=== PATIENT | female | born 1985 | race Two or more races ===

== ENCOUNTER 2024-10-20 07:05 | Emergency (ER) | payer MEDICAID, OTHER ==
[~2024-10-20] VITALS: Ht 157.5 cm; Wt 103.0 kg
--- NOTE | 2024-10-20 07:21 | ECG ---
[facility] Test Date: 2024-10-20 Test Time: 07:10:59 Pat Name: JOSIE DURHAM Department: ER Room: Gender: F Asbestos Hazard Abatement Worker: GEOFF : 1985 Requested By: JOHANN YEH Order Number: [id number] Reading MD: Alton Cobian Measurements Intervals [place] Rate: 79 P: 48 [place]: 153 QRS: -16 QRSD: 99 T: 39 QT: 395 QTc: 453 Interpretive Statements Sinus rhythm Probable left atrial enlargement Left ventricular hypertrophy Nonspecific T abnormalities, anterior leads Baseline wander in lead(s) V4 Electronically Signed On 10-23-2024 21:56:12 PST by Alton Cobian Please click the below link to view image of tracing.
[2024-10-20 08:02] LABS: Basophils # (auto) 0.1 10 ^3/uL (0-0.2); Basophils % (auto) 0.4 % (0.0-2.0); Eosinophils # (auto) 0.2 10 ^3/uL (0-0.8); Monocytes # (auto) 0.6 10 ^3/uL (0-1.3); Red Cell Distribution Width 15.5 % (11.8-14.3)
[2024-10-20 08:04] LABS: Eosinophils % (auto) 1.4 % (0.0-7.0); Hematocrit 43.4 % (36.0-46.0); Lymphocytes # (auto) 2.7 10 ^3/uL (0.4-5.4); Mean Corpuscular Hemoglobin 24.6 pg (28.0-32.0); Mean Corpuscular Hgb Conc. 32.3 g/dL (32.0-36.0); Monocytes % (auto) 4.5 % (0.0-12.0); Neutrophils # (auto) 9.8 10 ^3/uL (1.6-8.6); Neutrophils % (auto) 73.7 % (37.0-80.0); Nucleated Red Blood Cells % 0.1 %; Platelet Count (auto) 238 10^3/uL (140-450); Red Blood Cells 5.72 10^6/uL (4.0-5.20); White Blood Cell 13.3 10^3/uL (4.4-10.8)
[2024-10-20 08:15] LABS: Chloride 102 mmol/L (98-107); Potassium 4.1 mmol/L (3.5-5.1)
[2024-10-20 08:16] LABS: Anion Gap 11 (5-15); Calcium 10.1 mg/dL (8.7-10.4); Carbon Dioxide 22 mmol/L (20-31)
[2024-10-20 08:19] LABS: Sodium 135 mmol/L (136-145)
[2024-10-20 08:21] LABS: BUN/Creatinine Ratio 15.5 (10.0-20.0); Blood Urea Nitrogen 13 mg/dL (9-23)
[2024-10-20 08:24] LABS: Glucose 266 mg/dL (74-106)
--- NOTE | 2024-10-20 08:24 | DVH ---
EXAM: XR Chest, 1 View CLINICAL INDICATION: CHEST PAIN TECHNIQUE: Frontal view of the chest. COMPARISON: None FINDINGS: LUNGS AND PLEURAL SPACES: Unremarkable. No consolidation. No pneumothorax. HEART: Unremarkable. No cardiomegaly. MEDIASTINUM: Unremarkable. Normal mediastinal contour. BONES/JOINTS: Unremarkable. No acute fracture. OTHER FINDINGS: . None. IMPRESSION: No acute cardiopulmonary process.
--- NOTE | 2024-10-20 08:40 | ED.PDOC ---
HPI Comments A 39 YEAR OLD FEMALE WITH PMHX DM AND HTN PRESENTS TO THE ED WITH COMPLAINT OF INTERMITTENT CHEST PAIN [id number]. PT DESCRIBES CHEST PAIN SUBSTERNAL AND BURNING. PT STATES CHEST PAIN RADIATES TO MIDDLE BACK. NO PAIN AT PRESENT. PER PT, CHEST PAIN APPEARS AFTER EATING GREASY FOODS. PATIENT DENIES FEVER, CHILLS, SHORTNESS OF BREATH, ABDOMINAL PAIN, NAUSEA, VOMITING, HEADACHE, OR OTHER COMPLAINTS. NO OTHER SYMPTOMS OR MODIFYING FACTORS AT THIS TIME. PATIENT IS ALERT, ORIENTED X 4, AND HAS STEADY GAIT. Chief Complaint: Chest Pain Time Seen by MD: 08:25 Reviewed Notes: Nurses Notes, Medications, Allergies Allergies: Coded Allergies: NO KNOWN ALLERGIES (Unverified , 10/20/24) Home Meds Active Scripts Pantoprazole Sodium Sesquihydr (Protonix) 40 Mg Tab, 40 MG PO DAILY, #30 TAB Prov:YECENIA GTZ 10/20/24 Information Source: Patient Mode of Arrival: Ambulatory Severity: Mild Timing: Months Duration: Since onset, Intermittent Location: Substernal Radiation: Back Quality: Burning Onset: At Rest, Other (WITH EATING ) Cardiac Risk Factors: HTN, Diabetes PE Risk Factors: None History of: Similar pain in past Modifying Factors: Nothing Associated Signs and Symptoms: Abdominal Pain (EPIGASTRIC ), Back Pain Past Medical History PAST MEDICAL HISTORY: DM, HTN Surgical History: Denies all surgeries FRONT END ENGINEER History: No Pertinent FRONT END ENGINEER History Family History Family History: Unknown Social History Smoker: Non-Smoker Alcohol: Denies ETOH Use Drugs: Denies Drug Use Lives In: Home Constitutional: denies: chills, diaphoresis, fatigue, fever, malaise, sweats, weakness, others EENTM: denies: blurred vision, double vision, ear bleeding, ear discharge, ear drainage, ear pain, ear ringing, eye pain, eye redness, hearing loss, mouth pain, mouth swelling, nasal discharge, nose bleeding, nose congestion, nose pain, photophobia, tearing, throat pain, throat swelling, voice changes, others Respiratory: denies: cough, hemoptysis, orthopnea, SOB at rest, shortness of breath, SOB with excertion, stridor, wheezing, others Cardiovascular: reports: chest pain; denies: dizzy spells, diaphoresis, Dyspnea on exertion, edema, irregular heart beat, left arm pain, lightheadedness, palpitations, PND, syncope, others Gastrointestinal: reports: abdominal pain; denies: abdomen distended, blood streaked bowels, constipated, diarrhea, dysphagia, difficulty swallowing, hematemesis, melena, nausea, poor appetite, poor fluid intake, rectal bleeding, rectal pain, vomiting, others Genitourinary: denies: abnormal vagina bleeding, burning, dyspareunia, dysuria, flank pain, frequency, hematuria, incontinence, pain, , vagina discharge, urgency, others Neurological: denies: dizziness, fainting, headache, left sided numbness, left sided weakness, numbness, paresthesia, pre-existing deficit, right sided numbness, right sided weakness, seizure, speech problems, tingling, tremors, weakness, others Musculoskeletal: reports: back pain; denies: gout, joint pain, joint swelling, muscle pain, muscle stiffness, neck pain, others Integumetry: denies: bruises, change in color, change in hair/nails, dryness, laceration, lesions, lumps, rash, wounds, others Allergic/Immunocompromised: denies: Difficulty Healing, Frequent Infections, Hives, Itching, others Hematologic/Lymphatic: denies: anemia, blood clots, easy bleeding, easy bruising, swollen glands, others Endocrine: denies: excessive hunger, excessive sweating, excessive thirst, excessive urination, flushing, intolerance to cold, intolerance to heat, unex plained weight gain, unexplained weight loss, others Psychiatric: denies: anxiety, bipolar disorder, depression, hopeless, panic disorder, schizophrenia, sleepless, suicidal, others All Other Systems: Reviewed and Negative Physical Exam General Appearance: No Apparent Distress, Obese HEENT: Normal ENT Inspection, PERRL/EOMI, Pharynx Normal, TMs Normal Neck: Full Range of Motion, Non-Tender, Normal, Normal Inspection Respiratory: Chest Non-Tender, Lungs Clear, No Accessory Muscle Use, No Resp iratory Distress, Normal Breath Sounds Cardiovascular: No Edema, No JVD, No Murmur, No Gallop, Normal Peripheral Pulses, Regular Rate/Rhythm Breast Exam: Deferred Gastrointestinal: No Organomegaly, Non Tender, No Pulsatile Mass, Normal Bowel Sounds, Soft Genitalia: Deferred Pelvic: Deferred Rectal: Deferred Extremities: No calf tenderness, Normal capillary refill, Normal inspection, Normal range of motion, Non-tender, No pedal edema Musculoskeletal : Apperance: Normal Neurologic: Alert, cupola liner II-XII nml as Tested, No Motor Deficits, Normal Affect, Normal Mood, No Sensory Deficits Cerebellar Function: Normal Reflexes: Normal Skin: Dry, Normal Color, Warm Peripheral Pulses: 2+ carotid (R), 2+ carotid (L) Lymphatic: No Adenopathy EKG EKG : Pulse Rate (adult): 79 [place]: LAD Block: None Hypertrophy: LVH ST: Normal Was a procedure done? Was a procedure done?: No CP Differential Dx Differential Diagnosis: Anxiety / Panic Attack, Other (CHOLELITHIASIS) Differential Diagnosis: Angina, Cholelithiasis, Costochondritis, Esophageal reflux/spasm, Myocardial Infarction, Pericarditis, Pneumonia X-Ray, Labs, Meds, VS Vital Signs Date Time Temp Pulse Resp B/P (MAP) Pulse Ox O2 Delivery O2 Flow Rate FiO2 10/20/24 09:10 79 10/20/24 08:47 70 16 98 Room Air 10/20/24 08:47 98.7 70 16 157/84 (108) 98 98.7 10/20/24 07:05 99.3 83 20 158/92 (114) 99 Lab Test 10/20/24 08:57 10/20/24 08:15 10/20/24 07:34 10/20/24 07:19 Range/Units Total Bilirubin 1.0 0.2-1.0 mg/dL Direct Bilirubin 0.2 <0.3 mg/dL Aspartate Amino Transferase (AST) 19 13-40 U/L Alanine Aminotransferase (ALT) 35 7-40 U/L Alkaline Phosphatase 118 H 46-116 U/L Total Protein 7.8 5.7-8.2 g/dL Albumin 5.0 H 3.2-4.8 g/dL Troponin I High Sensitivity 10 </=34 ng/L White Blood Count 13.3 H 4.4-10.8 10^3/uL Red Blood Count 5.72 H 4.0-5.20 10^6/uL Hemoglobin 14.0 12.2-16.2 g/dL Hematocrit 43.4 36.0-46.0 % Mean Corpuscular Volume 76.0 L 80.0-100.0 fL Mean Corpuscular Hemoglobin 24.6 L 28.0-32.0 pg Mean Corpuscular Hemoglobin Concent 32.3 32.0-36.0 g/dL Red Cell Distribution Width 15.5 H 11.8-14.3 % Platelet Count 238 140-450 10^3/uL Mean Platelet Volume 9.7 6.9-10.8 fL Neutrophils (%) (Auto) 73.7 37.0-80.0 % Lymphocytes (%) (Auto) 20.0 10.0-50.0 % Monocytes (%) (Auto) 4.5 0.0-12.0 % Eosinophils (%) (Auto) 1.4 0.0-7.0 % Basophils (%) (Auto) 0.4 0.0-2.0 % Neutrophils # (Auto) 9.8 H 1.6-8.6 10 ^3/uL Lymphocytes # (Auto) 2.7 0.4-5.4 10 ^3/uL Monocytes # (Auto) 0.6 0-1.3 10 ^3/uL Eosinophils # (Auto) 0.2 0-0.8 10 ^3/uL Basophils # (Auto) 0.1 0-0.2 10 ^3/uL Nucleated Red Blood Cells 0.1 % Sodium Level 135 L 136-145 mmol/L Potassium Level 4.1 3.5-5.1 mmol/L Chloride Level 102 98-107 mmol/L Carbon Dioxide Level 22 20-31 mmol/L Anion Gap 11 5-15 Blood Urea Nitrogen 13 9-23 mg/dL Creatinine 0.84 0.550-1.02 mg/dL Glomerular Filtration Rate Calc 90 >90 mL/min BUN/Creatinine Ratio 15.5 10.0-20.0 Serum Glucose 266 H 74-106 mg/dL Calcium Level 10.1 8.7-10.4 mg/dL Thyroid Stimulating Hormone (TSH) 14.56 H 0.55-4.78 uIU/mL POC Glucose 244 H 70-106 mg/dl Test 10/20/24 07:15 Range/Units Troponin I High Sensitivity 8 </=34 ng/L PATIENT: VASHTI DURHAMCT: [id number]: [id number] : 1985 LOC: ER ROOM / BED: / AGE / SEX: 39 / F ADM STATUS: REG ER SERVICE [id number] ORDERING PHYSICIAN: YECENIA GTZ PROCEDURE(s): GBUS - GALLBLADDER REASON: epigastric pain to middle sternum ORDER NUMBER(s): [id number], ACCESSION NUMBER(s): [id number] EXAM: US Abdomen Limited, Gallbladder CLINICAL INDICATION: epigastric pain to middle sternum TECHNIQUE: Real-time ultrasound of the right upper quadrant with image documentation. COMPARISON: None FINDINGS: LIVER: Liver measures 12.2 cm. Echogenic liver. GALLBLADDER: Cholelithiasis and gallbladder sludge. Negative Castañeda's sign was reported by the utility engineer. COMMON BILE DUCT: CBD not visualized. PANCREAS: Unremarkable as visualized. RIGHT KIDNEY: Right kidney measures up to 12.6 cm. OTHER FINDINGS: . . IMPRESSION: Hepatomegaly with fatty infiltration. Cholelithiasis and gallbladder sludge. If symptoms persist, further evaluation with HIDA scan is recommended. ATED BY: EMILY MULLER MD DICTATED DATE/TIME: 10/20/24907 SIGNED BY: EMILY MULLER MD SIGNED DATE/TIME: 10/20/24907 CC: X-Ray, Labs, Meds, VS Comment COURSE: EXTERNAL MEDICAL RECORDS REVIEWED: [NONE] INDEPENDENT HISTORIANS: [NONE] SOCIAL DETERMINANTS OF HEALTH: [NONE] LABS ORDERED: CBC, BMP, TSH, TROPONIN X3, HEPATIC PANEL REVIEWED AND INTERPRETED RESULTS: CBC, BMP, TSH, TROPONIN X3, HEPATIC PANEL IMAGING ORDERED: CXR, GALLBLADDER U/S NORMAL X RAY RESULT: INTERPRETED BY ME. NO ACUTE FINDINGS. NO FRACTURES OR DISLOCATION. PENDING RADIOLOGIST REPORT. GALLBLADDER U/S: CHOLELITHIASIS AND GALLBLADDER SLUDGE. HEPATOMEGALY. TREATMENTS ORDERED: NO, PT DENIES CHEST PAIN AT THIS TIME. PROCEDURES PERFORMED: NONE CRITICAL CARE TIME: NONE I HAVE DISCUSSED THE PATIENT WITH THE ATTENDING PHYSICIAN DR. YEH AND HE AGREES WITH THE PATIENT'S PLAN OF CARE AND DISPOSITION. BASED ON HISTORY OF PRESENT ILLNESS, AND PHYSICAL EXAM, PATIENT WILL BE DISCHARGED HOME. DISCUSSED PLAN FOR DISCHARGE HOME WITH RX. MEDICATION WARNINGS GIVEN. SHARED DECISION MAKING: DISCUSSED WITH PATIENT THAT THEIR WORKUP WAS NORMAL. PATIENT INSTRUCTED TO FOLLOW UP WITH PRIMARY CARE PROVIDER IN 1-2 DAYS FOR RE- EVALUATION OF SYMPTOMS. PATIENT VERBALIZES UNDERSTANDING TO RETURN TO ED FOR NEW OR WORSENING SYMPTOMS OR IF FOLLOW UP WITH PCP CANNOT BE OBTAINED. PATIENT FEELS COMFORTABLE GOING HOME AT THIS TIME. ALL QUESTIONS ADDRESSED AT TIME OF DISCHARGE. Time of 1ST Reevaluation: 09:47 Reevaluation 1ST: Improved Patient Education/Counseling: Diagnosis, Treatment, Prognosis, Need For Follow Up Family Education/Counseling: Diagnosis, Treatment, No Family Present Medical Screening: No EMC Exist At This Time Departure 1 Departure Time of Disposition: 10:00 Impression: Primary Impression: Non-cardiac chest pain Additional Impressions: Cholelithiasis Qualified Codes: K80.20 - Calculus of gallbladder without cholecystitis without obstruction Gallbladder sludge Hypothyroidism Qualified Codes: E03.9 - Hypothyroidism, unspecified Disposition: HOME / SELF CARE / HOMELESS Condition: Stable Additional Instructions: FOLLOW-UP WITH PCP IN 1 TO 2 DAYS. TAKE MEDICATIONS PRESCRIBED. RETURN TO ED FOR ANY NEW OR WORSENING SYMPTOMS. e-Prescriptions Pantoprazole Sodium Sesquihydr (Protonix) 40 Mg Tab 40 MG PO DAILY, #30 TAB Prov: YECENIA GTZ 10/20/24 Discharged With: Self Critical Care Note Critical Care Time?: No Stability Stability form required: No Heart Score Heart Score: Heart Score Response (Comments) Value History Slightly Suspicious 0 EKG Normal 0 Age <45 0 Risk Factors 1 or 2 risk factors 1 Troponin Normal limit 0 Total 1 I personally scribed for YECENIA GTZ ([email or web address]) on 10/20/24 at 08:40. Electronically submitted by Susan Maria ([place]). I personally scribed for YECENIA GTZ ([email or web address]) on 10/20/24 at 09:46. Electronically submitted by Susan Maria ([place]). YECENIA GTZ Oct 20, 2024 08:40
[2024-10-20 08:47] VITALS: BP 157/84; RESP 16; TEMP 98.7; O2SAT 98
[2024-10-20 09:10] VITALS: PULSE 79
--- NOTE | 2024-10-20 09:10 | DVH ---
EXAM: US Abdomen Limited, Gallbladder CLINICAL INDICATION: epigastric pain to middle sternum TECHNIQUE: Real-time ultrasound of the right upper quadrant with image documentation. COMPARISON: None FINDINGS: LIVER: Liver measures 12.2 cm. Echogenic liver. GALLBLADDER: Cholelithiasis and gallbladder sludge. Negative Castañeda's sign was reported by the son ographer. COMMON BILE DUCT: CBD not visualized. PANCREAS: Unremarkable as visualized. RIGHT KIDNEY: Right kidney measures up to 12.6 cm. OTHER FINDINGS: . . IMPRESSION: Hepatomegaly with fatty infiltration. Cholelithiasis and gallbladder sludge. If symptoms persist, further evaluation with HIDA scan is andres mmended.
[2024-10-20 09:33] LABS: Bilirubin, Direct 0.2 mg/dL (<0.3); Total Protein 7.8 g/dL (5.7-8.2)
[2024-10-20] MEDS ORDERED: PANT40TA2 PO (09:47)
== END 2024-10-20 09:53 | disposition home or self-care (01) ==
LOC: ER 07:05
DX: K80.20 Calculus of gallbladder without cholecystitis without obstruction (principal); E03.9 Hypothyroidism, unspecified; E11.9 Type 2 diabetes mellitus without complications; I10 Essential (primary) hypertension; R07.89 Other chest pain
CPT/HCPCS: 36415; 71045; 76705; 80048; 80076; 82947; 82962; 84443; 84484; 85025; 93005